=== PATIENT | female | born 1970 | race Caucasian/White ===

== ENCOUNTER 2016-07-19 15:37 | Emergency (ER) | payer BC ==
[2016-07-19] MEDS ORDERED: DILAUDID 1 MG/ML AMP ONE (20:09)
[2016-07-19] MEDS ORDERED: ONDANSETRON 4 MG VIAL ONE (20:09)
[2016-07-19] MEDS ORDERED: KETOROLAC 30 MG/ML VIAL ONE (20:10)
== END 2016-07-19 23:46 | disposition home or self-care (01) ==
LOC: ER 15:37
DX: N20.2 Calculus of kidney with calculus of ureter (principal)
CPT/HCPCS: 36415; 74176; 80048; 81001; 85025; 87088; 96374; 96375